=== PATIENT | female | born 1975 | race Caucasian/White ===

== ENCOUNTER → 2020-11-23 | Outpatient (CLI) | payer BC | LOC: MC.RAD 11:09 | DX: Z12.31 Encounter for screening mammogram for malignant neoplasm of breast (principal); N63.20 Unspecified lump in the left breast, unspecified quadrant ==

== ENCOUNTER → 2020-11-29 | Outpatient (CLI) | payer BC | LOC: MC.RAD 08:19 | DX: N60.02 Solitary cyst of left breast (principal) ==

== ENCOUNTER → 2021-12-04 | Outpatient (CLI) | payer BC | LOC: MC.RAD 14:49 | DX: Z12.31 Encounter for screening mammogram for malignant neoplasm of breast (principal) ==

== ENCOUNTER → 2023-02-18 | Outpatient (CLI) | payer BC | LOC: CANSCHCLI → MC.RAD 07:31 | DX: Z12.31 Encounter for screening mammogram for malignant neoplasm of breast (principal) ==